=== PATIENT | male | born 1965 | race Caucasian/White ===

== ENCOUNTER → 2020-03-24 | Day surgery (SDC) | payer OTHER ==
[~2020-03-24] MED LIST: ASPI-630 PO; ATOR40TA59 PO; EMPA10TA PO; IPRATRPIUM/ALBUTEROL 0.5/2.5MG 3 ML NEBU. NEB PRN; LEVO175T2 PO; LIDOCAINE 2% PF 5 ML VIAL. ONE; METF500T16 PO; MIDAZOLAM HCL PF 2 MG/2 ML VIAL. IV ONE; ONDANSETRON PF 4 MG/2 ML VIAL. IV PRN; PROPOFOL 10,000 MCG/ML (20ML) VIAL IV ONE; SERT50TA PO
[2020-03-24] MEDS: IV RINGERS SOLUTION,LACTATED 1,000 ML IV SCH ×2 (10:30→11:00)
[2020-03-24 12:42] VITALS: BP 109/64
== END | disposition home or self-care (01) ==
LOC: SURG 10:14
PROVIDERS: ATTEND Internal Medicine Gastroenterology
DX: Z12.11 Encounter for screening for malignant neoplasm of colon (principal); K63.5 Polyp of colon; K62.1 Rectal polyp; K57.30 Diverticulosis of large intestine without perforation or abscess without bleeding; K64.8 Other hemorrhoids; E11.9 Type 2 diabetes mellitus without complications; E78.5 Hyperlipidemia, unspecified; Z98.890 Other specified postprocedural states; Z86.010 Personal history of colon polyps; Z80.0 Family history of malignant neoplasm of digestive organs; Z79.899 Other long term (current) drug therapy; Z88.8 Allergy status to other drugs, medicaments and biological substances
CPT/HCPCS: 45380; 45385; 82947; 88305; J2001; J2704; J7120